=== PATIENT | female | born 1995 | race African-American/Black ===

== ENCOUNTER 2020-03-29 22:29 | Emergency (ER) | payer MEDICAID ==
[~2020-03-29] VITALS: Ht 154.9 cm; Wt 44.0 kg
[2020-03-29] MEDS ORDERED: HYDROCODONE/ACETAMINOPHEN 5/325MG TABLET PO STA (23:37)
[2020-03-30 01:44] VITALS: BP 124/71
== END 2020-03-30 01:44 | disposition home or self-care (01) ==
LOC: ER 22:29
DX: S00.83XA Contusion of other part of head, initial encounter (principal); M25.562 Pain in left knee; V49.49XA Driver injured in collision with other motor vehicles in traffic accident, initial encounter; Y93.89 Activity, other specified; Y92.89 Other specified places as the place of occurrence of the external cause; Y99.8 Other external cause status
CPT/HCPCS: 73564; 99283